=== PATIENT | female | born 1995 | race African-American/Black ===

== ENCOUNTER 2019-04-03 18:30 | Emergency (ER) | payer OTHER ==
[~2019-04-03] VITALS: Ht 170.2 cm; Wt 69.0 kg
[2019-04-03] MEDS ORDERED: HYDROCODONE/ACETAMINOPHEN 5/325MG TABLET PO STA (19:25)
[2019-04-03 21:32] LABS: CLARITY URINE CLEAR (CLEAR); COLOR URINE YELLOW (YELLOW); KETONES URINE NEGATIVE (NEGATIVE); LEUKOCYTE ESTERASE URINE NEGATIVE (NEGATIVE); NITRITE URINE NEGATIVE (NEGATIVE); OCCULT BLOOD URINE NEGATIVE (NEGATIVE); PH URINE 7.5 (4.5-8.0); PROTEIN URINE NEGATIVE (NEGATIVE); SPECIFIC GRAVITY URINE 1.006 (1.005-1.030); UROBILINOGEN URINE 0.2 E.U./dL (0.2-1.0)
[2019-04-03 21:55] LABS: BASOPHILS % 0.5 % (0.0-2.0); EOSINOPHILS % 0.3 % (0.0-5.0); HEMATOCRIT. 41.7 % (36.0-48.0); HEMOGLOBIN. 14.3 g/dL (12.0-16.0); LYMPHOCYTES % 18.1 % (20.0-50.0); MEAN CORPUSCULAR HEMOGLOBIN 30.6 pg (28.0-32.0); MEAN CORPUSCULAR VOLUME 89.1 fL (81.0-99.0); MEAN PLATELET VOLUME 8.5 fl (7.4-10.4); MONOCYTES % 7.6 % (2.0-8.0); NEUTROPHILS % 73.5 % (40.0-76.0); PLATELET 277 x1000/uL (130-400); RED BLOOD CELL COUNT 4.68 mill/uL (4.2-5.4); RED CELL DISTRIBUTION WIDTH 13.1 % (11.6-14.6)
[2019-04-03 22:00] LABS: CHLORIDE 110 mEq/L (98-107)
[2019-04-03 22:01] LABS: PROTHROMBIN TIME 10.7 sec (9.6-11.0)
[2019-04-03 23:05] VITALS: BP 117/67
== END 2019-04-03 23:33 | disposition home or self-care (01) ==
LOC: ER 18:56
DX: N83.201 Unspecified ovarian cyst, right side (principal); Z97.5 Presence of (intrauterine) contraceptive device
CPT/HCPCS: 36415; 76830; 76856; 81003; 81025; 99284